=== PATIENT | female | born 1980 | race American Indian/Alaskan Native ===

== ENCOUNTER 2018-03-10 16:42 | Inpatient (IN) | payer BC ==
[2018-03-10] MEDS ORDERED: Sodium Chloride 0.9% 1,000 ML IV ONE ×2 (17:38→22:51)
[2018-03-10] MEDS ORDERED: Sodium Chloride 0.9% 1,000 ML ONE ×2 (17:56→23:32)
[2018-03-10 18:00] LABS: BASO % 0.5 % (0.0-2.0); EOS % 0.1 % (0.0-4.0); LYMPH # 0.3 K/uL (1.0-4.3); LYMPH % 4.3 % (20.0-40.0); MEAN CELL VOLUME 91.5 fL (81.0-99.0); MEAN CORPUSCULAR HEMOGLOBIN 32.1 pg (27.0-31.0); MEAN CORPUSCULAR HGB CONC 35.1 g/dL (33.0-37.0); MEAN PLATELET VOLUME 8.4 fL (7.2-11.7); MONO # 0.1 K/uL (0.0-0.8); MONO % 1.4 % (0.0-10.0); NEUT % 93.7 % (50.0-75.0); PLATELET COUNT 225 K/uL (130-400); RBC 4.06 Mil/uL (3.80-5.20); RED CELL DISTRIBUTION WIDTH 13.6 % (11.5-14.5); WHITE BLOOD COUNT 7.5 K/uL (4.8-10.8)
[2018-03-10 18:20] LABS: ALB/GLOB RATIO 1.1 (1.0-2.1); ALBUMIN 4.1 g/dL (3.5-5.0); ALT/SGPT 178 U/L (9-52); AST/SGOT 146 U/L (14-36); BLOOD UREA NITROGEN 22 mg/dL (7-17); CALCIUM 9.8 mg/dl (8.6-10.4); GFR AFRICAN-AMERICAN > 60; GFR NON-AFRICAN AMERICAN > 60
[2018-03-10 18:21] LABS: INR 1.4; PROTHROMBIN TIME 15.2 SECONDS (9.7-12.2)
--- NOTE | 2018-03-10 18:23 | RAD ---
PROCEDURE: CHEST RADIOGRAPH, 1 VIEW HISTORY: Cough, fever COMPARISON: None available. FINDINGS: LUNGS: Infiltrate at left base with some silhouetting of left heart border suggestive of lingular infiltrate. PLEURA: Probable small left pleural effusion. No right pleural effusion. CARDIOVASCULAR: Normal. OSSEOUS STRUCTURES: No significant abnormalities. VISUALIZED UPPER ABDOMEN: Normal. OTHER FINDINGS: None. IMPRESSION: Suspected lingular infiltrate. Small left pleural effusion.
[2018-03-10 18:32] LABS: B-TYPE NATRIURETIC PEPTIDE 850 pg/mL (0-450)
[2018-03-10 18:48] LABS: SQUAMOUS EPITHIAL 2 /hpf (0-5); URINE BILIRUBIN NEGATIVE (NEGATIVE); URINE BLOOD 1+ (NEGATIVE); URINE CLARITY Hazy (Clear); URINE COLOR Yellow (YELLOW); URINE GLUCOSE (UA) 1+ mg/dL (Normal); URINE HYALINE CAST 0-2 /lpf (0-2); URINE LEUKOCYTE ESTERASE NEG Leu/uL (Negative); URINE PROTEIN 1+ mg/dL (NEGATIVE); URINE UROBILINOGEN NORMAL mg/dL (0.2-1.0)
[2018-03-10 18:51] LABS: HCG,QUALITATIVE URINE NEGATIVE (NEGATIVE)
[2018-03-10 19:14] LABS: BANDS 11 % (0-2); LYMPHOCYTE 4 % (20-40); MONOCYTE 2 % (0-10); NEUTROPHIL 83 % (50-75); PLATELET ESTIMATE NORMAL (NORMAL); TOTAL CELLS COUNTED 100
[2018-03-10] MEDS ORDERED: cefTRIAXone IV 1 gm in Dextros 50 ML IVPB STA (19:20)
[2018-03-10] MEDS ORDERED: Azithromycin 500mg/250ML NS 500 MG/250 ML BAG IVPB STA (19:21)
[2018-03-10] MEDS ORDERED: cefTRIAXone IV 1 gm in Dextros 50 ML IVPB ONE (19:43)
--- NOTE | 2018-03-10 21:04 | C.PDOC ---
Time Seen by Provider: 03/10/18 17:30 Chief Complaint (Nursing): Shortness Of Breath History Per: Patient, Family Onset/Duration Of Symptoms: Days (3) Current Symptoms Are (Timing): Still Present Severity: Severe Associated Symptoms: Fever, Chest Pain, Productive Cough Additional History Per: Prior Records Past Medical History Reviewed: Historical Data, Nursing Documentation, Vital Signs Vital Signs: Last Vital Signs Temp 100.2 F H 03/10/18 19:42 Pulse 134 H 03/10/18 19:42 Resp 24 03/10/18 19:42 BP 121/77 03/10/18 19:42 Pulse Ox 95 03/10/18 19:42 - Medical History PMH: No Chronic Diseases Family History: States: Unknown Family Hx - Social History Hx Tobacco Use: Yes Hx Alcohol Use: Yes Hx Substance Use: No - Immunization History Hx Tetanus Toxoid Vaccination: Yes Hx Influenza Vaccination: No Hx Pneumococcal Vaccination: No Review Of Systems Except As Marked, All Systems Reviewed And Found Negative. Constitutional: Positive for: Fever, Malaise Cardiovascular: Positive for: Chest Pain Respiratory: Positive for: Cough, Shortness of Breath, Sputum Gastrointestinal: Negative for: Vomiting, Abdominal Pain Musculoskeletal: Negative for: Neck Pain Neurological: Negative for: Weakness, Numbness Physical Exam - Physical Exam Appears: In Acute Distress (mild) Skin: Normal Color, Warm, Dry Head: Atraumatic, Normacephalic Eye(s): bilateral: PERRL, EOMI Neck: Normal ROM, Supple Cardiovascular: Rhythm Regular (tachycardia) Respiratory: No Accessory Muscle Use, Rhonchi Gastrointestinal/Abdominal: Soft, No Tenderness Back: No CVA Tenderness Extremity: Normal ROM Neurological/Psych: Oriented x3, Normal Motor, Normal Sensation ED Course And Treatment - Laboratory Results Result Diagrams: 03/10/18 17:53 03/10/18 17:53 Lab Interpretation: Abnormal Interpretation Of Abnormal: Bandemia Urine POC: Negative ECG: Interpreted By Me, Viewed By Me ECG Rhythm: Sinus Tachycardia, Nonspecific Changes Rate From EC O2 Sat by Pulse Oximetry: 95 Pulse Ox Interpretation: Other Interpretation Of Abnormal: borderline - Radiology CXR: Viewed By Me, Read By Radiologist CXR Interpretation: Yes: Infiltrates (Lingular), Other (Left pleural effusion) Progress - Interventions Interventions:: Observation, Intravenous fluid, Oxygen - Medications Administered Oral: Acetaminophen Intravenous: Other (Abx) - Data Reviewed Data Reviewed: Lab, Diagnostic imaging, EKG, Old records - Patient Status Patient status: Partially improved - Continuity of Care Discussed patient case with:: Patient, Family-HIPPA compliant, ED Nurse, PMD - Patient Plan Patient Plan: Admission Disposition Discussed With : Shan Wu Comment: He accepted pt on his service. Doctor Will See Patient In The: Hospital Counseled Patient/Family Regarding: Studies Performed, Diagnosis, Smoking Cessation - Disposition Disposition: HOSPITALIZED Disposition Time: 21:07 Condition: GUARDED - Clinical Impression Clinical Impression: Pneumonia
--- NOTE | 2018-03-10 22:21 | CP.PCM.HP ---
History of Present Illness - History of Present Illness History of Present Illness: CC: shortness of breath HPI: Past Patient History - Past Social History Smoking Status: Heavy Smoker > 10 Cigarettes Daily - PSYCHIATRIC Hx Substance Use: No - SURGICAL HISTORY Other/Comment: lipo. laprooscopy Meds Allergies/Adverse Reactions: Allergies Allergy/AdvReac Type Severity Reaction Status Date / Time No Known Allergies Allergy Verified 03/10/18 17:27 Results - Vital Signs Recent Vital Signs: Last Vital Signs Temp 100.2 F H 03/10/18 19:42 Pulse 134 H 03/10/18 19:42 Resp 24 03/10/18 19:42 BP 121/77 03/10/18 19:42 Pulse Ox 95 03/10/18 21:07 - Labs Result Diagrams: 03/10/18 17:53 03/10/18 17:53 Labs: Laboratory Results - last 24 hr 03/10/18 03/10/18 03/10/18 17:53 17:53 17:53 WBC 7.5 RBC 4.06 Hgb 13.0 Hct 37.1 MCV 91.5 MCH 32.1 H MCHC 35.1 RDW 13.6 Plt Count 225 MPV 8.4 Neut % (Auto) 93.7 H Lymph % (Auto) 4.3 L [place] % (Auto) 1.4 Eos % (Auto) 0.1 Baso % (Auto) 0.5 Neut # (Auto) 7.0 Lymph # (Auto) 0.3 L [place] # (Auto) 0.1 Eos # (Auto) 0.0 Baso # (Auto) 0.0 Neutrophils % (Manual) 83 H Band Neutrophils % 11 H* Lymphocytes % (Manual) 4 L Monocytes % (Manual) 2 Platelet Estimate Normal PT 15.2 H INR 1.4 APTT 32 Sodium 134 Potassium 3.5 L Chloride 96 L Carbon Dioxide 23 Anion Gap 19 BUN 22 H Creatinine 1.0 Est GFR ( Amer) > 60 Est GFR (Non-Af Amer) > 60 Random Glucose 240 H Calcium 9.8 Total Bilirubin 1.2 AST 146 H ALT 178 H Alkaline Phosphatase 151 H Troponin I < 0.0120 NT-Pro-B Natriuret Pep 850 H Total Protein 8.0 Albumin 4.1 Globulin 3.9 Albumin/Globulin Ratio 1.1 Urine Color Urine Clarity Urine pH Ur Specific [place] Urine Protein Urine Glucose (UA) Urine Ketones Urine Blood Urine Nitrate Urine Bilirubin Urine Urobilinogen Ur Leukocyte Esterase Urine WBC (Auto) Urine RBC (Auto) Ur Squamous Epith Cells Hyaline Casts Urine HCG, Qual 03/10/18 18:40 WBC RBC Hgb Hct MCV MCH MCHC RDW Plt Count MPV Neut % (Auto) Lymph % (Auto) [place] % (Auto) Eos % (Auto) Baso % (Auto) Neut # (Auto) Lymph # (Auto) [place] # (Auto) Eos # (Auto) Baso # (Auto) Neutrophils % (Manual) Band Neutrophils % Lymphocytes % (Manual) Monocytes % (Manual) Platelet Estimate PT INR APTT Sodium Potassium Chloride Carbon Dioxide Anion Gap BUN Creatinine Est GFR ( Amer) Est GFR (Non-Af Amer) Random Glucose Calcium Total Bilirubin AST ALT Alkaline Phosphatase Troponin I NT-Pro-B Natriuret Pep Total Protein Albumin Globulin Albumin/Globulin Ratio Urine Color Yellow Urine Clarity Hazy Urine pH 5.0 Ur Specific [place] 1.011 Urine Protein 1+ H Urine Glucose (UA) 1+ Urine Ketones Negative Urine Blood 1+ H Urine Nitrate Negative Urine Bilirubin Negative Urine Urobilinogen Normal Ur Leukocyte Esterase Neg Urine WBC (Auto) 11 H Urine RBC (Auto) 1 Ur Squamous Epith Cells 2 Hyaline Casts 0-2 Urine HCG, Qual Negative
[2018-03-10] MEDS ORDERED: Potassium Chloride 20 mEq/15 ml LIQ UD PO STA (23:06)
[2018-03-10] MEDS ORDERED: Potassium Chloride 20 mEq ER Tab PO ONE (23:32)
[2018-03-11] MEDS: Albuterol-Ipratrop 3 mg / 0.5 (3 ml) UD INH SCH ×3 (01:44→13:37)
[2018-03-11] MEDS: Sodium Chloride 0.9% 1,000 ML IV SCH ×3 (01:45→19:00)
[2018-03-11] MEDS ORDERED: guaiFENesin 100 mg/5 ml Syrup UD PO ONE (03:57)
[2018-03-11] MEDS: Azithromycin 500 MG in Sodium Chloride 0.9% 250 ML IVPB SCH (09:42)
[2018-03-11] MEDS ORDERED: Albuterol-Ipratrop 3 mg / 0.5 (3 ml) UD INH PRN (14:05)
--- NOTE | 2018-03-11 19:11 | CARD ---
APPROVED REPORT EKG Measurement Heart [id number] <Conclusion> Sinus tachycardia Possible Left atrial enlargement Left ventricular hypertrophy with repolarization abnormality Abnormal ECG
[2018-03-12] MEDS ORDERED: Ipratropium 17 mcg/puff-200 puff/12.5 gm HFA Inh IH SCH (02:00)
--- NOTE | 2018-03-12 04:45 | CP.PCM.PN ---
Subjective - Date & Time of Evaluation Date of Evaluation: 03/11/18 Time of Evaluation: 18:00 - Subjective Subjective: Pt is seen and examined, is tacycardic, tacypneac at times, she is coughing, having low grade fever Objective - Vital Signs/Intake and Output Vital Signs (last 24 hours): Temp Pulse Resp BP Pulse Ox 98.7 F 125 H 20 161/91 H 97 03/11/18 23:35 03/11/18 23:35 03/11/18 23:35 03/11/18 23:35 03/11/18 23:35 Intake and Output: 03/11/18 03/12/18 18:59 06:59 Intake Total 1100 800 Balance 1100 800 - Medications Medications: Current Medications Acetaminophen (Tylenol 325mg Tab) 650 mg PO Q6 PRN PRN Reason: Fever >100.4 F Albuterol/Ipratropium (Duoneb 3 Mg/0.5 Mg (3 Ml) Ud) 3 ml INH RQ6 PRN PRN Reason: Shortness of Breath Last Admin: 03/11/18 20:21 Dose: 3 ml Ceftriaxone Sodium 1 gm/ (Sodium Chloride) 100 mls @ 100 mls/hr IVPB DAILY [facility] PRN Reason: Protocol Last Admin: 03/11/18 09:42 Dose: 100 mls/hr Sodium Chloride (Sodium Chloride 0.9%) 1,000 mls @ 100 mls/hr IV .Q10H [facility] Last Admin: 03/11/18 19:00 Dose: Not Given Azithromycin 500 mg/ Sodium (Chloride) 250 mls @ 250 mls/hr IVPB DAILY [facility] PRN Reason: Protocol Last Admin: 03/11/18 09:42 Dose: 250 mls/hr Ipratropium [place] (Atrovent Hfa) 2 puff IH RQ6 [facility] Pneumococcal Polyvalent Vaccine (Pneumovax 23 Vaccine) 0.5 ml IM .ONCE ONE Stop: 03/13/18 10:01 - Labs Labs: 03/10/18 17:53 03/10/18 17:53 PT 15.2 SECONDS (9.7-12.2) H 03/10/18 17:53 INR 1.4 03/10/18 17:53 APTT 32 SECONDS (21-34) 03/10/18 17:53 - Constitutional Appears: No Acute Distress - Head Exam Head Exam: ATRAUMATIC, NORMAL INSPECTION, NORMOCEPHALIC - Eye Exam Eye Exam: EOMI, Normal appearance, PERRL Pupil Exam: NORMAL ACCOMODATION, PERRL - Respiratory Exam Respiratory Exam: Decreased Breath Sounds, Rales, Rhonchi Additional comments: positive cracakles left middle lobe - Cardiovascular Exam Cardiovascular Exam: REGULAR RHYTHM, +S1, +S2. absent: Murmur - Rectal Exam Rectal Exam: Deferred - Extremities Exam Extremities Exam: Full ROM, Normal Capillary Refill, Normal Inspection. absent : Joint Swelling, Pedal Edema Assessment and Plan (1) Pneumonia Assessment & Plan: neg blood cultures IV fluids antibiotics Status: Acute (2) Dehydration Status: Acute
[2018-03-12] MEDS: Sodium Chloride 0.9% 1,000 ML IV SCH ×2 (05:00→15:02)
[2018-03-12] MEDS ORDERED: Potassium Chloride 20 mEq/15 ml LIQ UD PO STA ×2 (07:10→09:09)
[2018-03-12 07:42] LABS: BASO % 0.6 % (0.0-2.0); EOS % 0.5 % (0.0-4.0); LYMPH # 1.1 K/uL (1.0-4.3); LYMPH % 14.5 % (20.0-40.0); MEAN CELL VOLUME 90.9 fL (81.0-99.0); MEAN CORPUSCULAR HGB CONC 35.2 g/dL (33.0-37.0); MEAN PLATELET VOLUME 8.7 fL (7.2-11.7); MONO # 0.3 K/uL (0.0-0.8); MONO % 4.6 % (0.0-10.0); NEUT # 5.8 K/uL (1.8-7.0); NEUT % 79.8 % (50.0-75.0); NRBC % 0.1 % (0.0-2.0); RBC 3.3 Mil/uL (3.80-5.20); RED CELL DISTRIBUTION WIDTH 13.6 % (11.5-14.5); WHITE BLOOD COUNT 7.2 K/uL (4.8-10.8)
[2018-03-12 07:44] LABS: HEMOGLOBIN 10.6 g/dL (11.0-16.0)
[2018-03-12 08:07] LABS: BLOOD UREA NITROGEN 4 mg/dL (7-17); CALCIUM 8.6 mg/dl (8.6-10.4); GFR AFRICAN-AMERICAN > 60; GFR NON-AFRICAN AMERICAN > 60
[2018-03-12] MEDS: guaiFENesin 600 mg ER Tab PO SCH ×2 (09:46→17:03)
[2018-03-12 11:17] LABS: ALB/GLOB RATIO 0.9 (1.0-2.1); ALT/SGPT 64 U/L (9-52); AST/SGOT 47 U/L (14-36); BILIRUBIN,DIRECT 0.4 mg/dL (0.0-0.4)
[2018-03-12] MEDS: Azithromycin 500 MG in Sodium Chloride 0.9% 250 ML IVPB SCH (11:34)
[2018-03-12 16:45] VITALS: O2SAT 97
[2018-03-12] MEDS: Ipratropium 17 mcg/puff-200 puff/12.5 gm HFA Inh IH SCH (20:55)
[2018-03-12] MEDS ORDERED: Metoprolol Succinate 25 mg XL Tab PO ONE (22:46)
[2018-03-13] MEDS: Ipratropium 17 mcg/puff-200 puff/12.5 gm HFA Inh IH SCH ×2 (01:35→07:43)
[2018-03-13 08:41] VITALS: BP 116/114; RESP 20; TEMP 97.9
--- NOTE | 2018-03-13 09:26 | CP.PCM.PN ---
Subjective - Date & Time of Evaluation Date of Evaluation: 03/13/18 Time of Evaluation: 18:00 - Subjective Subjective: Pt seen and examined at bedside Objective - Vital Signs/Intake and Output Vital Signs (last 24 hours): Temp Pulse Resp BP Pulse Ox 97.9 F 116 H 20 116/114 H 97 03/13/18 08:38 03/13/18 08:38 03/13/18 08:38 03/13/18 08:38 03/13/18 08:38 Intake and Output: 03/13/18 03/13/18 06:59 18:59 Intake Total 360 Balance 360 - Medications Medications: Current Medications Acetaminophen (Tylenol 325mg Tab) 650 mg PO Q6 PRN PRN Reason: Fever >100.4 F Last Admin: 03/13/18 00:23 Dose: 650 mg Guaifenesin (Mucinex [place]) 600 mg PO BID [facility] Last Admin: 03/12/18 17:03 Dose: 600 mg Ceftriaxone Sodium 1 gm/ (Sodium Chloride) 100 mls @ 100 mls/hr IVPB DAILY [facility] PRN Reason: Protocol Last Admin: 03/12/18 09:46 Dose: 100 mls/hr Azithromycin 500 mg/ Sodium (Chloride) 250 mls @ 250 mls/hr IVPB DAILY [facility] PRN Reason: Protocol Last Admin: 03/12/18 11:34 Dose: 250 mls/hr Ipratropium [place] (Atrovent Hfa) 2 puff IH RQ6 [facility] Last Admin: 03/13/18 07:43 Dose: Not Given Metoprolol Succinate (Toprol Xl) 25 mg PO DAILY [facility] Pneumococcal Polyvalent Vaccine (Pneumovax 23 Vaccine) 0.5 ml IM .ONCE ONE Stop: 03/13/18 10:01 - Labs Labs: 03/12/18 07:16 03/12/18 07:16 PT 15.2 SECONDS (9.7-12.2) H 03/10/18 17:53 INR 1.4 03/10/18 17:53 APTT 32 SECONDS (21-34) 03/10/18 17:53 Assessment and Plan (1) Pneumonia Status: Acute (2) Dehydration Status: Acute
--- NOTE | 2018-03-13 09:26 | CP.PCM.PN ---
Subjective - Date & Time of Evaluation Date of Evaluation: 03/12/18 Time of Evaluation: 20:00 - Subjective Subjective: Pt seen and examined at bedside Objective - Vital Signs/Intake and Output Vital Signs (last 24 hours): Temp Pulse Resp BP Pulse Ox 97.9 F 116 H 20 116/114 H 97 03/13/18 08:38 03/13/18 08:38 03/13/18 08:38 03/13/18 08:38 03/13/18 08:38 Intake and Output: 03/13/18 03/13/18 06:59 18:59 Intake Total 360 Balance 360 - Medications Medications: Current Medications Acetaminophen (Tylenol 325mg Tab) 650 mg PO Q6 PRN PRN Reason: Fever >100.4 F Last Admin: 03/13/18 00:23 Dose: 650 mg Guaifenesin (Mucinex [place]) 600 mg PO BID [facility] Last Admin: 03/12/18 17:03 Dose: 600 mg Ceftriaxone Sodium 1 gm/ (Sodium Chloride) 100 mls @ 100 mls/hr IVPB DAILY [facility] PRN Reason: Protocol Last Admin: 03/12/18 09:46 Dose: 100 mls/hr Azithromycin 500 mg/ Sodium (Chloride) 250 mls @ 250 mls/hr IVPB DAILY [facility] PRN Reason: Protocol Last Admin: 03/12/18 11:34 Dose: 250 mls/hr Ipratropium [place] (Atrovent Hfa) 2 puff IH RQ6 [facility] Last Admin: 03/13/18 07:43 Dose: Not Given Metoprolol Succinate (Toprol Xl) 25 mg PO DAILY [facility] Pneumococcal Polyvalent Vaccine (Pneumovax 23 Vaccine) 0.5 ml IM .ONCE ONE Stop: 03/13/18 10:01 - Labs Labs: 03/12/18 07:16 03/12/18 07:16 PT 15.2 SECONDS (9.7-12.2) H 03/10/18 17:53 INR 1.4 03/10/18 17:53 APTT 32 SECONDS (21-34) 03/10/18 17:53 Assessment and Plan (1) Pneumonia Status: Acute (2) Dehydration Status: Acute
[2018-03-13] MEDS: guaiFENesin 600 mg ER Tab PO SCH (09:37)
[2018-03-13] MEDS ORDERED: Metoprolol Succinate 25 mg XL Tab PO SCH (10:00)
[2018-03-13] MEDS ORDERED: Pneumococcal 23-Valent Vaccine IM ONE (10:00)
[2018-03-13 10:14] LABS: BLOOD UREA NITROGEN 6 mg/dL (7-17); CALCIUM 9.2 mg/dl (8.6-10.4); GFR AFRICAN-AMERICAN > 60; GFR NON-AFRICAN AMERICAN > 60
[2018-03-13] MEDS: Azithromycin 500 MG in Sodium Chloride 0.9% 250 ML IVPB SCH (11:21)
[2018-03-13 12:25] VITALS: PULSE 115
[2018-03-13] MEDS ORDERED: Potassium Chloride 20 mEq ER Tab PO ONE (12:57)
--- NOTE | 2018-03-13 13:36 | CP.PCM.PN ---
Subjective - Date & Time of Evaluation Date of Evaluation: 03/13/18 Time of Evaluation: 13:33 - Subjective Subjective: PT CLEARED FOR D/C HOME TODAY PER DR. TELLES. BMP REPEATED THIS MORNING AND K 3.5 (REPLACED PRIOR TO D/C). DISCUSSED RX, D/C, AND F/U PLAN WITH THE PT AT LENGTH. SHE WILL F/U WITH DR. TELLES IN THE OFFICE IN 1 WEEK. NO FURTHER ORDERS. -FOLLOW UP WITH DR. TELLES IN THE OFFICE WITHIN 1 WEEK OF DISCHARGE---CALL THE OFFICE TO MAKE AN APPOINTMENT. -CONTINUE HOME MEDICATIONS USUAL. -NEW MEDICATIONS INCLUDE : 1) AUGMENTIN 875 MG (TAKE 1 TABLET) BY MOUTH TWICE A DAY (MORNING AND EVENING ) FOR 7 DAYS--THIS IS THE ANTIBIOTIC. 2) GUAIFENESIN 600 MG (TAKE 1 TABLET) BY MOUTH TWICE A DAY (MORNING AND EVENING) FOR 7 DAYS--THIS IS FOR COUGH AND CONGESTION. 3) POTASSIUM SUPPLEMENT 20 MEQ (TAKE 1 TABLET) BY MOUTH ONCE A DAY FOR 3 DAYS- --START TOMORROW, 03/14/18. 4) METOPROLOL 25 MG (TAKE 1 TABLET) BY MOUTH ONCE A DAY ---THIS IS FOR YOUR BLOOD PRESSURE. -FOR FURTHER CONCERNS OR QUESTIONS, CONTACT DR. TELLES'S OFFICE. Objective - Vital Signs/Intake and Output Vital Signs (last 24 hours): Temp Pulse Resp BP Pulse Ox 97.9 F 115 H 20 116/114 H 97 03/13/18 08:38 03/13/18 12:00 03/13/18 08:38 03/13/18 08:38 03/13/18 08:38 Intake and Output: 03/13/18 03/13/18 06:59 18:59 Intake Total 360 Balance 360 - Medications Medications: Current Medications Acetaminophen (Tylenol 325mg Tab) 650 mg PO Q6 PRN PRN Reason: Fever >100.4 F Last Admin: 03/13/18 09:39 Dose: 650 mg Guaifenesin (Mucinex [place]) 600 mg PO BID [facility] Last Admin: 03/13/18 09:37 Dose: 600 mg Ceftriaxone Sodium 1 gm/ (Sodium Chloride) 100 mls @ 100 mls/hr IVPB DAILY [facility] PRN Reason: Protocol Last Admin: 03/13/18 09:37 Dose: 100 mls/hr Azithromycin 500 mg/ Sodium (Chloride) 250 mls @ 250 mls/hr IVPB DAILY [facility] PRN Reason: Protocol Last Admin: 03/13/18 11:21 Dose: 250 mls/hr Ipratropium [place] (Atrovent Hfa) 2 puff IH RQ6 [facility] Last Admin: 03/13/18 07:43 Dose: Not Given Metoprolol Succinate (Toprol Xl) 25 mg PO DAILY [facility] Last Admin: 03/13/18 09:38 Dose: 25 mg - Labs Labs: 03/12/18 07:16 03/13/18 09:48 PT 15.2 SECONDS (9.7-12.2) H 03/10/18 17:53 INR 1.4 03/10/18 17:53 APTT 32 SECONDS (21-34) 03/10/18 17:53
--- NOTE | 2018-03-13 19:42 | CARD ---
APPROVED REPORT EXAM: Two-dimensional and M-mode echocardiogram with Doppler and color Doppler. Other Information Quality : GoodRhythm : INDICATION Dyspnea LVH,SMOKER 2D DIMENSIONS IVSd1.1 (0.7-1.1cm)LVDd3.5 (3.9-5.9cm) PWd1.0 (0.7-1.1cm)LVDs2.5 (2.5-4.0cm) FS (%) 26.4 %LVEF (%)52.8 (>50%) M-Mode DIMENSIONS RVDd2.15 (2.1-3.2cm)Left Atrium (MM)3.87 (2.5-4.0cm) IVSd1.39 (0.7-1.1cm)Aortic Root2.52 (2.2-3.7cm) LVDd3.96 (4.0-5.6cm)Aortic Cusp Exc.1.88 (1.5-2.0cm) PWd0.93 (0.7-1.1cm)FS (%) 30 % LVDs2.77 (2.0-3.8cm)LVEF (%)58 (>50%) Mitral Valve MV E [id number]/sE/A ratio0.0 TDI E/Lateral E'0.0E/Medial E'0.0 LEFT VENTRICLE The left ventricle is normal size. There is normal left ventricular wall thickness. Left ventricle systolic functionsystolic function is low normal. The Ejection Fraction is 50-55%. There is normal LV segmental wall motion. The left ventricular diastolic function is normal. No left ventricle thrombus noted on this study. RIGHT VENTRICLE The right ventricle is normal size. The right ventricular systolic function is normal. ATRIA The left atrium size is normal. The right atrium size is normal. AORTIC VALVE The aortic valve is mildly thickened. The aortic valve is trileaflet. No aortic regurgitation is present. There is no aortic valvular stenosis. There is no aortic valvular vegetation. MITRAL VALVE Mitral annular calcification is borderline. There is no evidence of mitral valve prolapse. There is no mitral valve stenosis. Mitral regurgitation is trace to mild. TRICUSPID VALVE The tricuspid valve is normal in structure. There is trace tricuspid regurgitation. There is no tricuspid valve prolapse or vegetation. There is no tricuspid valve stenosis. PULMONIC VALVE The pulmonary valve is normal in structure. There is no pulmonic valvular regurgitation. There is no pulmonic valvular stenosis. GREAT VESSELS The aortic root is normal in size. The IVC is normal in size and collapses >50% with inspiration. PERICARDIAL EFFUSION There is no pericardial effusion. There is no pleural effusion. <Conclusion> The left ventricle is normal size. Left ventricle systolic functionsystolic function is low normal. The Ejection Fraction is 50-55%. The left ventricular diastolic function is normal. The right ventricle is normal size. The right ventricular systolic function is normal. The left atrium size is normal. The right atrium size is normal. Mitral regurgitation is trace to mild. There is trace tricuspid regurgitation.
== END 2018-03-13 14:22 | disposition home or self-care (01) | DRG 195 ==
LOC: C.ER 16:42 → C.9E 21:07 → C.3T 22:16 → C.6T 03-11 00:14
PROVIDERS: ADMIT Internal Medicine; ATTEND Internal Medicine
DX: J18.9 Pneumonia, unspecified organism (principal); E86.0 Dehydration; F17.210 Nicotine dependence, cigarettes, uncomplicated